=== PATIENT | male | born 1950 | race African-American/Black ===

== ENCOUNTER 2022-01-19 18:46 | Emergency (ER) | payer MEDICARE, MEDICAID, SELFPAY ==
--- NOTE | ~2022-01-19 | CT_ITS ---
EXAMINATION: CT ANGIOGRAM HEAD AND NECK CLINICAL INFORMATION: Severe headache COMPARISON: Head CT 07/29/2018 TECHNIQUE: Test bolus sequences followed by intravenous administration of 70 mL of Omnipaque 350 intravenous contrast. Helical imaging was performed in the axial plane from the mediastinum to the skull vertex. Delayed postcontrast imaging of the head was also performed. The data was processed at the geospatial technologist's workstation for generation of MIP sequences. Three-dimensional volume rendered reformatted images were also generated at an offline 3-D workstation. This CT examination was performed using dose optimization techniques as appropriate, variously including the following: *Automated exposure control *Adjustment of mA and/or kV according to patient size (this includes techniques or standardized protocols for targeted exams where dose is matched to indication/reason for exam; i.e. extremities or head) *Use of iterative reconstruction technique DLP: 2228 mGy-cm FINDINGS: HEAD: No intra or extra-axial fluid collection, hemorrhage, or mass. No midline shift or herniation. Basal cisterns are patent. [place]-white matter differentiation is maintained. No territorial encephalomalacia. No ventriculomegaly. Mild generalized cerebral volume loss with mild sulcal prominence and lateral ventricular enlargement. Minimal nonspecific hypoattenuation in the supratentorial periventricular and subinsular white matter. Small low-density focus in the inferior left lentiform nucleus consistent with a dilated perivascular space. Small hypoattenuating focus in the body of the caudate on the right, possibly a small remote lacunar infarct. Major dural venous sinuses enhance normally. No abnormal meningeal enhancement. Status post prior right frontal craniotomy. No calvarial fracture. The paranasal sinuses are well aerated and clear. SOFT TISSUES AND LUNG APICES: Status post right lens extraction. Globes and retro-orbital structures otherwise unremarkable. Normal appearance of the engineering designer space and parapharyngeal fat. Major salivary glands and thyroid gland are unremarkable. No retropharyngeal fluid collection. No appreciable mucosal space mass. Laryngeal structures are unremarkable. No upper mediastinal lymphadenopathy. No cervical lymphadenopathy. Mild dependent hazy atelectasis in the posterior upper lobes. Lung apices otherwise clear. 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 No acute fracture or suspicious osseous lesion. Advanced multilevel cervical spondylosis. Milder disc degenerative change and facet arthrosis in the upper thoracic spine. NECK CTA: Normal caliber aortic arch. Variant direct origin of the left vertebral artery from the aortic arch noted. Arch origins patent. Cervical segments of the bilateral vertebral arteries bilaterally patent. Right common carotid, carotid bifurcation, and internal carotid artery widely patent. There is tortuous or redundant course of the right carotid artery below the skull base. 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 The vessel is occluded to the level of the carotid bifurcation where there is reconstitution of flow presumably via the external carotid artery. There is noncalcified thrombus within the proximal left ICA with decreased attenuation and caliber of the cervical segment of the left internal carotid artery. CRANIAL CTA: Posterior circulation: Intradural vertebral arteries are patent. Patent bilateral PICA's and left AICA. Basilar artery is patent. Patent bilateral superior cerebellar arteries. Bilateral posterior cerebral arteries are patent. Patent bilateral posterior communicating arteries. Anterior circulation: The petrous, cavernous, and supraclinoid left ICA are diminutive with decreased contrast attenuation. No further luminal narrowing/stenosis. The right petrous and cavernous ICA segments are patent. Anterior cerebral arteries and anterior communicating artery patent. No aneurysm or stenosis. There is a small broad-based 2 mm outpouching/aneurysm projecting posteriorly from the supraclinoid left ICA adjacent to the left posterior communicating artery origin, image 350/1191. Bilateral MCAs are patent. CT/CT angio head neck IMPRESSION: 1. 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 There is noncalcified thrombus within the proximal left ICA/ICA origin with diminished caliber of the left internal carotid artery throughout its course. 2. Patent right common and internal carotid arteries. 3. Patent bilateral vertebral arteries. 4. No intracranial hemorrhage, mass, acute territorial infarct, or abnormal enhancement. 5. Small 2 mm broad-based outpouching/aneurysm projecting posteriorly from the supraclinoid left ICA adjacent to the left posterior communicating artery origin.
--- NOTE | 2022-01-19 19:03 | ED.HA ---
HPI - Headache General Chief Complaint: Chest Pain Stated Complaint: headache, htn Time Seen by Provider: 01/19/22 18:59 Source: patient and EMS Limitations: no limitations History of Present Illness HPI Narrative: This is a 71 years old male presented to the emergency department with a chief complaint of a headache since yesterday, he states that he has history of seizure takes Keppra. Denies any fever nausea vomiting MD elicited complaint: headache Onset (ago): day(s) (1) Onset description: gradually Location: right and temporal Severity: moderate Quality & Timing: aching Exacerbating factors: none Relieving factors: nothing Context: occurred at rest Related Data Previous Rx's Medication Instructions Recorded amlodipine 5 mg tablet (Norvasc) 5 mg PO DAILY #30 tabs 01/19/22 aspirin 81 mg capsule 81 mg PO DAILY #30 caps 01/19/22 Allergies Allergy/AdvReac Type Severity Reaction Status Date / Time No Known Allergies Allergy Unverified 10/23/19 17:47 [No Known Allergies*] Review of Systems Constitutional: Constitutional: Reports no additional constitutional complaints Eyes: Eyes: Reports no additional eye complaints Cardiovascular: Cardiovascular: Reports no additional cardiovascular complaints Gastrointestinal: Gastrointestinal: Reports no additional gastrointestinal complaints [facility] Past Medical History [facility] Narrative: seizure,alcohol abuse Social History Social History Alcohol intake: current Smoked in Last 30 Days: Yes Use of substances other than those prescribed or required for medical reasons: No Advance Directives: No Advance Directives Information Provided: No Physical Exam Vital Signs: Vital Signs: Last Vital Signs Temp 98.7 F 01/19/22 23:18 Pulse 60 01/19/22 23:18 Resp 17 01/19/22 23:18 BP 193/106 H 01/19/22 23:18 Pulse Ox 97 01/19/22 23:18 O2 Del Method 01/19/22 23:18 BMI result Body Mass Index 26.6 Const: General: cooperative Orientation/consciousness: patient oriented x3 Limitations: no limitations HEENT: Head: Yes normal to inspection Ears: hearing grossly normal bilaterally General nose exam: Normal external nose present Face and sinus: Yes normal facial exam Mouth: Normal oral and palatal mucosa present Throat: Yes posterior oropharynx normal Neck: Neck: Yes normal visual inspection Chest: Chest palpation & inspection: normal inspection of the chest Resp: Effort & Inspection: normal respiratory effort Auscultation: clear to auscultation bilaterally Cardio: Jugular venous distension: no JVD Rate: regular rate Rhythm: regular rhythm GI: Inspection: Yes normal to inspection Palpation (GI): Soft to palpation, not firm and nontender : General: Yes no CVA tenderness Back/Spine/Pelvis: Back: no CVA tenderness Neuro: General: patient oriented x3 and Normal light touch and pain sensation Course Course Course Narrative: I discussed the finding of CTA with vascular service Dr Johnson,pt is neurologicaklly intact now,he came for CANTRELL,Per Dr Johnson pt can be d/c home with follow up with him,he will need to take a baby aspirin every day Reevaluation(s) Reevaluation #1: his CANTRELL is gone after toradol Time: 23:00 Consultations Consultation #1: Dr Johnson discussed cta report Medications Administered Discontinued Medications Generic Name Dose Route Start Last Admin Trade Name Freq PRN Reason Stop Dose Admin Amlodipine Besylate 5 mg 01/19/22 23:22 01/19/22 23:29 Amlodipine Besylate 5 Mg Tablet PO 01/19/22 23:23 5 mg ONCE ONE Administration Protocol Sodium Chloride 1,000 mls @ 999 mls/hr 01/19/22 19:00 01/19/22 20:16 Ns IVCONT 01/19/22 20:00 Infused .Q1H1M STEPHEN Infusion Iohexol 70 ml 01/19/22 21:49 01/19/22 21:50 Iohexol 350 Mg/Ml 100 Ml Infus..Btl IV 01/19/22 21:50 70 ml ONCE ONE Administration Ketorolac Tromethamine 30 mg 01/19/22 19:02 01/19/22 19:16 Ketorolac Tromethamine 30 Mg/Ml Vial IVPUSH 01/19/22 19:03 30 mg ONCE ONE Administration Medical Decision Making Medical Decision Making MDM Narrative: pt presented with CANTRELL will get labs/head ct /analgesia reexam Differential Diagnosis Differential Diagnoses: The differential diagnosis associated with the presentation includes intracranial bleed/tumor Admission/Observation Consideration of admission/observation: Escalation of care including admission/observation considered Consult Healthcare Provider Management of the patient was discussed with: Electrical Controls Engineer (Vascular Dr Johnson) Lab Data [facility] Lab Attestation statement: I reviewed the patient's lab results. Result Diagrams: 01/19/22 20:24 01/19/22 20:24 Labs: Lab Results 01/19/22 01/19/22 01/19/22 Range/Units 20:24 20:24 20:24 WBC 5.9 (4.8-10.8) X10*3/uL RBC 4.85 (4.60-5.80) X10*6/uL Hgb 15.2 (14.0-18.0) g/dl Hct 44.8 (42.0-52.0) % MCV 92.4 (80.0-98.0) fL MCH 31.3 (27.0-33.0) pg MCHC 33.9 (31.0-36.0) g/dl RDW 11.9 (11.0-16.0) % Plt Count 183 (160-400) X10*3/uL MPV 10.5 (9.4-12.4) fL Immature Gran % (Auto) 0.2 (0.0-0.4) % Neut % (Auto) 38.3 L (45-73) % Lymph % (Auto) 46.6 H (20-40) % [place] % (Auto) 9.3 (2-11) % Eos % (Auto) 4.9 H (0-4) % Baso % (Auto) 0.7 (0-2) % Lymph # (Auto) 2.8 (1.2-4.9) X10*3/uL [place] # (Auto) 0.6 (0.1-1.2) X10*3/uL Eos # (Auto) 0.3 (0.0-0.4) X10*3/uL Baso # (Auto) 0.0 (0.0-0.2) X10*3/uL Abs Immat Gran (auto) 0.01 (0.00-0.03) X10*3/uL Absolute Neuts (auto) 2.3 (2.0-8.3) x10*3/uL Absolute Nucleated RBC 0.000 (0.0-0.012) X10*3/uL Nucleated RBC % (auto) 0.0 (0.0-0.2) /100WBC PT 12.2 (10.0-13.1) SEC INR 1.1 (0.9-1.1) Sodium 141 (135-145) mmol/L Potassium 4.0 (3.3-5.1) mmol/L Chloride 107 (96-108) mmol/L Carbon Dioxide 24 (22-29) mmol/L Anion Gap 14 (12-20) BUN 12 (9-16) mg/dL Creatinine 1.10 (0.5-1.4) mg/dL Estim Creat Clear Calc 61.3 Estimated GFR > 60 Random Glucose 88 (60-115) mg/dL Calcium 8.6 (8.4-10.2) mg/dL Total Bilirubin 0.7 (0.0-1.0) mg/dL AST 17 (5-37) U/L ALT 15 (0-40) U/L Alkaline Phosphatase 69 (39-117) U/L Total Protein 6.9 (6.5-8.0) g/dL Albumin 4.0 (3.5-5.0) g/dL Radiology Impression Discussion of test interpretation with radiology: I have reviewed the radiologist's reading. Radiologist Impression: are diminutive with decreased contrast attenuation. No further luminal narrowing/stenosis. The right petrous and cavernous ICA segments are patent. Anterior cerebral arteries and anterior communicating artery patent. No aneurysm or stenosis. There is a small broad-based 2 mm outpouching/aneurysm projecting posteriorly from the supraclinoid left ICA adjacent to the left posterior communicating artery origin, image 350/1191. Bilateral MCAs are patent. CT/CT angio head neck IMPRESSION: 1.? 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 There is noncalcified thrombus within the proximal left ICA/ICA origin with diminished caliber of the left internal carotid artery throughout its course. 2.? Patent right common and internal carotid arteries. 3.? Patent bilateral vertebral arteries. 4.? No intracranial hemorrhage, mass, acute territorial infarct, or abnormal enhancement. 5.? Small 2 mm broad-based outpouching/aneurysm projecting posteriorly from the supraclinoid left ICA adjacent to the left posterior communicating artery origin. ? Dictated By: Alfredito Ceja Signed By: <Electronically signed by Salvatore Ceja in OV> 01/19/222241 DD/ 49 TD/TT:? Patient Support Partner: Discharge Plan Discharge Clinical Impression: Headache Patient Disposition: Home, Self-Care Additional Instructions: You have an occluded left carotid artery (one of the artery in the neck) you will need to see vascular surgery,we spoke with Dr Johnson he will see you for follow up make sure you call in AM. Also take a baby aspirin every days. Return if worse any concern Prescriptions: New amlodipine [Norvasc] 5 mg tablet 5 mg PO DAILY Qty: 30 0RF aspirin 81 mg capsule 81 mg PO DAILY Qty: 30 0RF Referrals: Manjeet Johnson MD [Physician] - 1 day Interventions: ED Discharge Assessment Last Done: 01/19/22 23:33
[2022-01-19] MEDS: 0.9 % Sodium Chloride 1,000 ML 999 ML IVCONT (19:16)
[2022-01-19] MEDS: Ketorolac Tromethamine 30 MG/ML VIAL IVPUSH (19:16)
[2022-01-19 19:46] VITALS: BP 174/110; BMI 26.6
--- NOTE | 2022-01-19 20:22 | PC.NURSE ---
Patient is alert and oriented. No apparent distress.
[2022-01-19 20:27] LABS: MANUAL DIFF FLAG NO
[2022-01-19 20:29] LABS: Basophils Percent Auto 0.7 % (0-2); Eosinophils Absolute Auto 0.3 X10*3/uL (0.0-0.4); Eosinophils Percent Auto 4.9 % (0-4); Hematocrit 44.8 % (42.0-52.0); Hemoglobin 15.2 g/dl (14.0-18.0); Imm Gran Abs Auto 0.01 X10*3/uL (0.00-0.03); Imm Gran Pct Auto 0.2 % (0.0-0.4); Lymphocytes Absolute Auto 2.8 X10*3/uL (1.2-4.9); Lymphocytes Percent Auto 46.6 % (20-40); Mean Corpuscular HGB Conc 33.9 g/dl (31.0-36.0); Mean Corpuscular Hemoglobin 31.3 pg (27.0-33.0); Mean Corpuscular Volume 92.4 fL (80.0-98.0); Mean Platelet Volume 10.5 fL (9.4-12.4); Monocytes Absolute Auto 0.6 X10*3/uL (0.1-1.2); Monocytes Percent Auto 9.3 % (2-11); Neutrophils Absolute Auto 2.3 x10*3/uL (2.0-8.3); Neutrophils Percent Auto 38.3 % (45-73); Platelet Count 183 X10*3/uL (160-400); Red Blood Count 4.85 X10*6/uL (4.60-5.80); Red Cell Distribution Width 11.9 % (11.0-16.0); White Blood Count 5.9 X10*3/uL (4.8-10.8)
[2022-01-19 20:36] LABS: INTERNATIONAL NORM RATIO 1.1 (0.9-1.1); Prothrombin Time 12.2 SEC (10.0-13.1)
[2022-01-19 21:10] LABS: Alanine Aminotransferase 15 U/L (0-40); Alkaline Phosphatase 69 U/L (39-117); Anion Gap 14 (12-20); Aspartate Amino Transferase 17 U/L (5-37); Bilirubin Total 0.7 mg/dL (0.0-1.0); Blood Urea Nitrogen 12 mg/dL (9-16); Calcium 8.6 mg/dL (8.4-10.2); Carbon Dioxide 24 mmol/L (22-29); Chloride 107 mmol/L (96-108); Creatinine Clr Calc Pharmacy 61.3; Estimated Glomerular Filt Rate > 60; Glucose Random 88 mg/dL (60-115); Sodium 141 mmol/L (135-145); Total Protein 6.9 g/dL (6.5-8.0)
[2022-01-19] MEDS: iohexoL 350 MG/ML 100 ML INFUS..BTL 70 ML IV (21:50)
[2022-01-19 23:18] VITALS: BP 193/106; PULSE 60; RESP 17; TEMP 37.1; O2SAT 97
--- NOTE | 2022-01-19 23:23 | PC.NURSE ---
Addendum entered by Lara Shankar RN 01/19/22 23:32: This RN spoke with RN at [facility] to provide update on discharge instruction, including new prescriptions. Awaiting transport back. Original Note: Assisting primary RN with discharge. Discharge vitals, patient noted to be hypertensive- MD Vasquez made aware and will give patient BP med. This RN called [facility] to inform of discharge instructions and new prescriptions/follow-up with vascular surgery.
[2022-01-19] MEDS: amLODIPine Besylate 5 MG TABLET PO (23:29)
== END 2022-01-20 00:37 | disposition home or self-care (01) ==
PROVIDERS: Emergency Provider Emergency Medicine
DX: R51.9 Headache, unspecified (principal); I10 Essential (primary) hypertension; M54.2 Cervicalgia; Z20.822 Contact with and (suspected) exposure to COVID-19; Z79.899 Other long term (current) drug therapy
CPT/HCPCS: 36415; 70496; 70498; 80053; 85025; 85610; 96361; 96374; 99284; 99285; J1885; Q9967